=== PATIENT | male | born 1975 | race Caucasian/White ===

== ENCOUNTER 2020-07-30 15:21 | Emergency (ER) | payer OTHER ==
[~2020-07-30] VITALS: Ht 177.8 cm; Wt 79.4 kg
[~2020-07-30 15:21] MED LIST: ASPIRIN81 M1 PO; COREG3.125 MG PO; LISINOPRIL2.5 MG PO; MOTRIN800 MG PO; NITROSTAT0.4 MG SL; PLAVIX75 M1 PO; SIMVASTATIN20 MG PO
[2020-07-30] MEDS ORDERED: HYDROCODONE-AC1 EAC1 PO (16:43)
== END 2020-07-30 17:05 | disposition home or self-care (01) ==
LOC: ED 15:21
DX: S62.202A Unspecified fracture of first metacarpal bone, left hand, initial encounter for closed fracture (principal); S20.211A Contusion of right front wall of thorax, initial encounter; F17.200 Nicotine dependence, unspecified, uncomplicated; Z79.899 Other long term (current) drug therapy; Z98.890 Other specified postprocedural states; Z95.818 Presence of other cardiac implants and grafts; X58.XXXA Exposure to other specified factors, initial encounter; Y93.89 Activity, other specified; Y92.89 Other specified places as the place of occurrence of the external cause; Y99.8 Other external cause status